=== PATIENT | female | born 1940 | race Caucasian/White ===

== ENCOUNTER → 2017-08-11 10:25 | Outpatient (CLI) | payer MEDICARE, OTHER, SELFPAY ==
--- NOTE | 2017-08-11 09:00 | PET_ITS ---
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 COMPARISON EXAMINATION: CT of the abdomen and pelvis report dated 07/31/17, CT of the chest report dated 07/30/17. INDEX LESION SIZE SUV INTERPRETATION Right upper abdomen surgical site 14.5 mm x 15.7 mm (frame 162) 7.8 Fulfills quantitative criteria for viable neoplasm Left mid posterolateral hemithorax pulmonary parenchyma, left lower lobe 12.2 mm (frame 220) 1.2 Quantitative criteria for viable neoplasm are not fulfilled, sequential radiologic investigation recommended TECHNIQUE: Following the intravenous administration of 17.3 mCi of F-18 deoxyglucose via the left forearm, multiplanar image acquisitions of the neck, chest, abdomen and pelvis to level of mid thigh, obtained at one hour post radiopharmaceutical administration contemporaneously interpreted with the current CT of the neck, chest, abdomen and pelvis to level of mid thigh, dated 08/11/[address] of the abdomen and pelvis report dated 07/31/17, CT of the chest report dated 07/30/17 reveal: SERUM GLUCOSE LEVEL: 85 mg/dl. HEIGHT: 64 inches. WEIGHT: 122 lbs. FINDINGS: 1. A distinct nodular focus of enhanced glucose metabolism is defined in the right upper abdomen in the region of the surgical bed, operative site. The calculated maximum standard uptake value is 7.8. The maximal axial diameter of the corresponding metabolic, morphologic abnormality on review of CT of the abdomen and pelvis dated 08/11/17 is 14.5 mm (transverse) x 15.7 mm (AP). 2. Subtle increased radiotracer concentration is observed in the left mid posterolateral hemithorax pulmonary parenchyma, left lower lobe generating a calculated maximum standard uptake value of 1.2. The maximal axial diameter of the corresponding density on review of CT of the thorax dated 08/11/17 is 12.2 mm (transverse). 3. Normal physiologic distribution of the radiopharmaceutical is apparent in the hepatic (2.7) and splenic parenchyma, both renal units, bladder and visualized intestinal tract. Decreased glucose metabolism is defined in the bilateral occipital and right temporal cerebral cortex on review of limited reconstructions of the brain. There is otherwise symmetric glucose metabolism noted in the remaining cerebral cortical and subcortical structures. Diffuse intestinal tract activity is noted throughout all four quadrants of the abdominal-pelvic retroperitoneum, mesentery consistent with normal physiologic distribution of the radiopharmaceutical. Prominent glucose concentration is observed in the descending thoracic aorta. Pertinent CT findings are as follows. CHEST: Atherosclerotic calcification is defined in the thoracic aorta without evidence of dilatation, aneurysm formation. Bilateral axillary soft tissue densities with fatty hilus formation are non-glucose avid. There are no parenchymal densities-nodules demonstrated in the right-left hemithorax manifesting quantitatively significant increased glucose metabolism. ABDOMEN AND PELVIS: Postsurgical changes are noted in the right upper abdomen. The gallbladder is surgically absent. Soft tissue mass formation is noted at the operative site as described above demonstrating quantitatively significant increased glucose metabolism. Colonic diverticulosis is defined. Right-left inguinal soft tissue densities are ametabolic. SKELETAL: Degenerative changes defined in the cervical, thoracic and lumbar spine demonstrate no evidence for glucose hypermetabolism. Diffuse demineralization is demonstrated. PET/PET/CT Tumor Base -Thigh Init IMPRESSION: 1. ABNORMAL EXAMINATION INDICATIVE OF MALIGNANT VIABLE NEOPLASM. 2. Increased glucose concentration noted in the right upper abdomen in the region of the surgical site fulfills quantitative criteria for viable neoplasm. 3. Subtle increased labeled glucose metabolism observed in the left hemithorax pulmonary parenchyma, left lower lobe does not fulfill quantitative criteria for viable neoplasm. (Morrison et al, Annals of Internal Medicine, 138:724, 2003). 4. Metabolic and/or anatomic stability may be ensured in the left hemithorax mildly hypermetabolic pulmonary parenchymal hypermetabolic focus with repeat FDG PET study and/or CT of the thorax in three months. (Xiu, Journal of Nuclear Medicine 45:88, P2004. Guille, Seminars in Thoracic and Cardiovascular Surgery 14:292, 2002). 5. Prominent glucose concentration observed in the descending thoracic aorta is commensurate with activated leukocytes associated with atherosclerotic plaque formation. (Poncho et al, Clinical Nuclear Medicine 29:93, 2004). Electronic Signature West Rust D.O. Electronically Signed: West Rust DO at 23:11 EDT Tel , Service support ,
== END ==
PROVIDERS: Family Provider Family Medicine; PCP Family Medicine; Visit Provider Internal Medicine Hematology & Oncology
DX: R91.1 Solitary pulmonary nodule (principal)
CPT/HCPCS: 78815; A9552; A4216

== ENCOUNTER → 2017-09-02 08:29 | Outpatient (CLI) | payer MEDICARE, OTHER, SELFPAY ==
[2017-09-02] VITALS (11 sets, daily range): BP systolic 107–168; BP diastolic 61–95; PULSE 46–63; RESP 13–20; TEMP 37.1; O2SAT 92–100; BMI 21.1
--- NOTE | 2017-09-02 08:34 | CT_ITS ---
PROCEDURE: CT-GUIDED CORE BIOPSY OF A MASS IN THE GALLBLADDER FOSSA Individualized dose optimization techniques were used for this CT. INDICATION: Female, 77 years old. Recurrent mass in the gallbladder fossa CT guidance RADIATION DOSAGE (If Supplied By Facility): CTDIvol = ( ) mGy, DLP = ( ) mGycm CONSENT: The risks, benefits and alternatives to the procedure were explained to the patient, and the patient agreed to the procedure and signed the consent. SEDATION: Intermittent the intravenous and demonstration of Versed and fentanyl by nursing staff under continuous cardiopulmonary monitoring. Sedation less than approximately 30 minutes STERILE BARRIER TECHNIQUE: The following sterile barrier precautions were used during the procedure: hand hygiene; use of 2% chlorhexidine aseptic; use of a cap, mask, sterile gown, sterile gloves, sterile full body drape, and a large sterile sheet. PROCEDURE/TECHNIQUE: The risks, benefits, and alternatives to the procedure were explained to patient, and the patient agreed to the procedure and signed a consent form for the procedure. A timeout was performed to confirm the patient's identity, the type of procedure, to be performed and the site of entry. Patient was positioned supine on the CT scan table. Under CT guidance using sterile technique and after infiltration of the skin and subcutaneous soft tissues with 40 mL of lidocaine 1% an 18-gauge core biopsy was introduced in the lung mass previously described.Multiple core samples were obtained and were placed with in formalin solution and sent to the lab for evaluation. Touch prep slides were examined by the pathologist at the procedure. FINDINGS: Successful CT-guided core biopsy of soft tissue mass in the gallbladder fossa. Localizing 20-gauge needle penetrated the gastric antrum during the study. The post biopsy CT scan demonstrated small hemorrhage in the gallbladder fossa. CT/Biopsy/Inj or Needle Placement IMPRESSION: Successful CT-guided core biopsy of a soft tissue mass in the gallbladder fossa. Accidental penetration of the gastric antrum with 20-gauge needle. Small hematoma in the gallbladder fossa after the biopsy. Electronically Signed: Amy Saleem MD at 16:10 EDT Tel , Service support ,
[2017-09-02 09:28] LABS: Platelet Count 230 K/mm3 (150-450)
[2017-09-02 09:36] LABS: Prothrombin Time (Protime)PT. 13.5 SECONDS (11.7-14.9)
[2017-09-02 09:37] LABS: Partial Thromboplast Time 29.5 Seconds (24.1-36.2)
--- NOTE | 2017-09-02 10:45 | MASS_PTH ---
PATIENT: MARISSA TAVERAS LOC: CT U#:[id number] AGE/SX: 84/F ROOM: RE09/02/[address]: Dr. Rigoberto Mercado DO : 1940 BED: DIS: SPEC #: [id number] RECD: 09/02/17 10:53 STATUS: BILL [place]IO #: [id number] BRANDON: 09/02/17 10:[address]: Rigoberto Mercado DEPT: SURGICAL PATHOLOGY RECD BY: West Freedman ENTERED: 09/02/17 10:59 SP TYPE: Mass OTHR DR: Dr. Jose Juan Story MD Tissues: Soft tissues of abdomen Procedures: Surgery Specimen Level IV HEADER OPERATION: CT-guided RUQ nodule PRE-OP DIAGNOSIS: Cholangiocarcinoma TISSUE SUBMITTED: 18 gauge x6 cores MICROSCOPIC DIAGNOSIS Right upper quadrant nodule, CT-guided core biopsy: Fragments of fibroadipose and fibrovascular tissue with chronic inflammation and reactive changes. Negative for malignancy. SJ:kingsley 09/03/17 COMMENT Please make reference to previous specimen ([id number]) gallbladder, cholecystectomy with diagnosis of invasive adenocarcinoma with focal papillary features. Case has been reviewed in consultation with Dr. Ozuna who concurs with the above diagnosis. IDC:AM MICROSCOPIC DESCRIPTION Slides are reviewed. GROSS DESCRIPTION Received is one container labeled with the patient's name and not further designated. The specimen consists of multiple irregular fragments of light quezada soft tissue that in aggregate measure 1 x 0.3 x 0.1 cm. The specimen is totally submitted in one cassette. / SJ:rg 09/02/17 TC:5 CPT: 42977
--- NOTE | 2017-09-02 11:45 | NURSING ---
PT C/O SEVERE RUQ PAIN AND THEN STS SHE NEEDS TO USE THE BATHROOM. DR CALLE AWARE. PT TO BATHROOM VIA CART AND ASSISTED TO TOILET. PT HAD LARGE BM AND STS PAIN IMPROVED FOLLOWING BM. DR CALLE INFORMED.
== END ==
PROVIDERS: Family Provider Family Medicine; PCP Family Medicine; Visit Provider Internal Medicine Hematology & Oncology
DX: C22.1 Intrahepatic bile duct carcinoma (principal)
CPT/HCPCS: 20206; 77012; 85049; 85610; 85730; 88305; 99156; 99157; J7040; A4216

== ENCOUNTER → 2017-11-06 08:20 | Outpatient (CLI) | payer MEDICARE, OTHER, SELFPAY ==
[2017-11-06] VITALS (9 sets, daily range): BP systolic 100–150; BP diastolic 56–103; PULSE 51–59; RESP 11–26; TEMP 36.3; O2SAT 94–100; BMI 20.7
--- NOTE | 2017-11-06 | ASPIGT_PTH ---
PATIENT: MARISSA TAVERAS LOC: [place] U#:[id number] AGE/SX: 84/F ROOM: RE11/06/[address]: Dr. Rigoberto Mercado DO : 1940 BED: DIS: SPEC #: [id number] RECD: 11/06/17 13:43 STATUS: BILL INDIO #: [id number] BRANDON: 11/06/17 00:[address]: Rigoberto Mercado DEPT: SURGICAL PATHOLOGY RECD BY: West Freedman ENTERED: 11/06/17 13:43 SP TYPE: ASP RAD OTHR DR: Dr. Jose Juan Story MD Tissues: Right upper quadrant of abdomen Procedures: FNA Specimen Adequacy Special Stain Group II Surgery Specimen Level IV Diff Quik Stain (control) Imprint (control) HEADER OPERATION: CT-guided right upper quadrant mass biopsy PRE-OP DIAGNOSIS: Cholangiocarcinoma TISSUE SUBMITTED: Right upper quadrant nodule 18g x3 MICROSCOPIC DIAGNOSIS Right upper outer quadrant mass, CT-guided needle core biopsy: Focal fat necrosis. No evidence of malignancy. AM:kingsley 11/07/17 COMMENT The specimen is evaluated at the time of biopsy by Dr. Vu. Immediate Evaluation = Negative for malignant cells. MICROSCOPIC DESCRIPTION Slides are reviewed. GROSS DESCRIPTION Received in fixative is one container labeled with the patient's name and designated right upper quadrant mass, CT-guided core biopsy. The specimen consists of two irregular fragments of quezada soft tissue that in aggregate measure 0.3 x 0.1 x <0.1 cm. The entire specimen is submitted in one cassette. / SJ:kingsley 11/06/17 TC:5 CPT: 37572, 22757
[2017-11-06 08:57] LABS: International Normalized Ratio 1.1
== END ==
PROVIDERS: Family Provider Family Medicine; PCP Family Medicine; Visit Provider Internal Medicine Hematology & Oncology
DX: R19.01 Right upper quadrant abdominal swelling, mass and lump (principal); K65.4 Sclerosing mesenteritis; Z85.09 Personal history of malignant neoplasm of other digestive organs
CPT/HCPCS: 21920; 36415; 77012; 85610; 88172; 88305; 88313; 99156; 99157; J7040; A4216

== ENCOUNTER 2018-01-04 07:25 | Emergency (ER) | payer MEDICARE, OTHER, SELFPAY ==
[2018-01-04 07:25] VITALS: BP 145/81; PULSE 84; RESP 18; TEMP 36.6; O2SAT 99; BMI 20.7
[2018-01-04 07:39] VITALS: BP 135/70; PULSE 63; RESP 24; O2SAT 100
--- NOTE | 2018-01-04 07:50 | CT_ITS ---
STUDY: CT BRAIN WITHOUT CONTRAST REASON FOR EXAM: Female, 77 years old. Confusion. New medications started RADIATION DOSAGE (If Supplied By Facility): CTDIvol = ( 44.99 ) mGy, DLP = ( 779.24 ) mGycm TECHNIQUE: Transaxial CT imaging of the brain was performed without administration of intravenous contrast material. Individualized dose optimization techniques were used for this CT. COMPARISON: None. FINDINGS: Normal soft tissue structures. Normal calvarium. There is moderate cerebral atrophy with widening of the extra-axial spaces and ventricular dilatation. There are areas of decreased attenuation within the white matter tracts of the supratentorial brain, consistent with microvascular disease changes. Normal basal ganglia and thalami. Normal brainstem. There is mild cerebellar atrophy. There is no intracranial hemorrhage. There are no findings of an acute ischemic infarction. Normal visualized paranasal sinuses. CT/Brain/Head without Contrast IMPRESSION: Chronic involutional changes of the brain. Electronically Signed: Joseph Collier DO at 9:08 EDT Tel , Service support ,
--- NOTE | 2018-01-04 07:50 | EKG12_ITS ---
Test Reason : GEN ILL Blood Pressure : / mmHG Vent. Rate : 059 BPM Atrial Rate : 059 BPM P-R Int : 174 ms QRS Dur : 082 ms QT Int : 408 ms P-R-T Axes : 049 082 082 degrees QTc Int : 403 ms Sinus bradycardia Otherwise normal ECG Confirmed by YANG SANDY, ANAMIKA ([id number]), non linear editor JUN CARDENAS ([id number]) on 01/08/2018 10:13:52 AM Referred By: BRANDY Confirmed By:ANAMIKA SORIA MD
--- NOTE | 2018-01-04 07:50 | RAD_ITS ---
STUDY: X-RAY CHEST REASON FOR EXAM: Female, 77 years old. Confusion TECHNIQUE: Single AP portable view of the chest. COMPARISON: None. FINDINGS: There is hyperinflation of the lungs consistent with chronic obstructive lung disease (COPD). Lungs are clear. There is no demonstrated pleural abnormality. Normal size heart. Normal mediastinum and dom. Normal visualized pulmonary arteries. Normal visualized aortic arch and descending thoracic aorta. Normal visualized thoracic spine. Normal visualized ribs, clavicles, and shoulders. There is no demonstrated abnormality of the visualized soft tissue structures of the upper abdomen. RAD/Chest 1 View IMPRESSION: COPD without acute findings. Electronically Signed: Joseph Collier DO at 9:09 EDT Tel , Service support ,
[2018-01-04 08:23] LABS: Mucous, Urine 0 SEEN /hpf (<or=2+)
[2018-01-04 08:26] LABS: Absolute Lymphocyte Count 1.71 X10^3/ul (0.83-4.51); Absolute Neutrophil Count 2.8 X10^3/uL (2.0-7.7); Basophil# 0.02 X10^3/uL; Basophil% 0.4 % (0-1); Eosinophil# 0.04 X10^3/uL; Eosinophils% 0.8 % (0-5); Hematocrit 37.6 % (37-47); Hemoglobin 12.6 g/dl (12.0-15.0); Lymphocyte # 1.71 X10^3/ul (4.0); Lymphocyte % 35.6 % (19-41); Mean Corp Hgb Conc 33.5 g/gl (32-36); Mean Corpuscular Hgb 30.8 pg (27.0-32.0); Mean Corpuscular Volume 91.9 fL (81-99); Mean Platelet Vol. 9.2 fl (6.2-12.0); Monocyte# 0.29 X10^3/uL; Neutrophil # 2.75 X10^3/uL (2.7-7.7); Neutrophil % 57.2 % (47-70); Platelet Count 205 K/mm3 (150-450); RBC Distribution Width CV 12.2 % (11.6-14.6); RBC Distribution Width SD 41.3 fl (35.1-43.9); Red Blood Count 4.09 M/mm3 (4.2-5.4); White Blood Count 4.8 K/mm3 (4.4-11.0)
[2018-01-04 08:28] LABS: Color, Urine Yellow (Yellow); Glucose, Dipstick Normal (Normal); Ketone-Dipstick Negative (Negative); Leukocyte Esterase-Dipstick 500 /ul (Negative); Nitrite-Dipstick Negative (Negative); Occult Blood-Urine 50 /ul (Negative); POSITIVE COUNT NO; POSITIVE DIFFERENTIAL NO; POSITIVE MORPHOLOGY NO; Protein-Dipstick Negative (Negative); Specific Gravity, Urine 1.015 (1.002-1.030); Urine Bilirubin Dipstick Negative (Negative); Urine Clarity Sl. Cloudy (Clear); Urine Urobilinogen Normal (Normal)
[2018-01-04 08:34] LABS: Amorphous Sediment 1+; Bacteria 3+ /hpf (None Seen); Red Blood Cells-Urine 0-5 SEEN /hpf (0-5); Squamous Epithelial Cells - UA 0-5 SEEN /hpf (5-10); White Blood Cells 5-10 SEEN /hpf (0-5)
[2018-01-04 08:42] LABS: Anion Gap 8 (5-15); BUN 14 mg/dL (7-18); BUN/Creat Ratio 17.5 RATIO (10-20); Calcium,Total 9.3 mg/dL (8.5-10.1); Chloride 109 mmol/L (98-107); EST Glomerular Filtration Rate 74 mL/min (>60); Est Glom Filt Rate - Afr Amer 90 mL/min (>60); Estimated Creatinine Clearance 54.39 ml/min; Glucose 94 mg/dL (74-106); Potassium 3.7 mmol/L (3.5-5.1); Sodium Level 144 mmol/L (136-145)
[2018-01-04 09:17] VITALS: O2SAT 100
--- NOTE | 2018-01-04 09:36 | ED.VISSUMM ---
- ER Visit Summary Date of Service: 01/04/18 Chief Complaint: Disoriented History of Present Illness: The patient is a 77 F who woke up around 1:30 AM today and was screaming help me. Patient did not know where she was. Her helps reorient her and calm her down overnight. She was doing well yesterday. The only change in her normal routine was that she started taking Aricept. She had her first dose last night. She has a history of dementia and hypothyroidism. She has no other associated symptoms other than she felt that she had to have a bowel movement at the time. She was not having any other symptoms. No diarrhea or constipation. No bleeding. No nausea or vomiting. No fevers. Physical Examination: Afebrile and vital signs unremarkable. Patient is alert and oriented. No acute distress. Cranial nerves grossly intact. Moves all extremities. No focal or lateralizing neurologic abnormality's grossly. Heart regular rate and rhythm. Lungs clear. Abdomen soft and nontender. Test Results: EKG showed sinus rhythm at a rate of 59. No sign of acute ischemia or infarction pattern. Chest x-ray showed chronic changes. CT brain showed chronic changes. CBC normal. BMP unremarkable. Troponin normal. Urinalysis shows signs of a UTI. Emergency Department Course and Treatment: Patient symptoms may be secondary to starting Aricept. This can cause insomnia, hallucinations, abnormal dreams, confusion, agitation, and aggression. I advised her to discontinue this medication at this point. I considered other causes of her disorientation. I did check a CT as well as labs and a urinalysis. She has signs of a UTI but no signs of sepsis. No other abnormal findings. We will treat with Keflex for UTI. This does not sound like stroke or seizure. I cannot find any other causes for her symptoms. Will treat the UTI. Discontinue Aricept. Follow-up with her doctor later in the week for recheck. Return for any new or worsening issues. At this point, I do not believe admission or further care is indicated emergently. Patient will return for new or worsening issues. Treatment Plan: Discharge Disposition: Discharged Impression: 1. Disorientation 2. UTI This note was generated with [employer] software. It may contain incorrect words, spelling, and punctuation that were not noted in review of the chart prior to signing ED Disposition - Plan for ED Patient: Chief Complaint: General Illness Referrals: Jose Juan Story MD [Primary Care Provider] -
[2018-01-04 09:39] VITALS: BP 147/81; PULSE 58; RESP 18; O2SAT 99
--- NOTE | 2018-01-04 09:39 | ED.DCSUM_ITS ---
- ER Visit Summary Date of Service: 01/04/18 Chief Complaint: Disoriented History of Present Illness: The patient is a 77 F who woke up around 1:30 AM today and was screaming help me. Patient did not know where she was. Her helps reorient her and calm her down overnight. She was doing well yest erday. The only change in her normal routine was that she started taking Aricept. She had her first dose last night. She has a history of dementia and hypothyroidism. She has no other associated symptoms other than she felt that she had to have a bowel movement at the time. She was not having any other symptoms. No diarrhea or constipation. No bleeding. No nausea or vomiting. No fevers. Physical Examination: Afebrile and vital signs unremarkable. Patient is alert and oriented. No acute distress. Cranial nerves grossly intact. Moves all extremities. No focal or lateralizing neurologic abnormality's grossly. Heart regular rate and rhythm. Lungs clear. Abdomen soft and nontender. Test Results: EKG showed sinus rhythm at a rate of 59. No sign of acute ischemia or infarction pattern. Chest x-ray showed chronic changes. CT brain showed chronic changes. CBC normal. BMP unremarkable. Troponin normal. Urinalysis shows signs of a UTI. Emergency Department Course and Treatment: Patient symptoms may be secondary to starting Aricept. This can cause insomnia, hallucinations, abnormal dreams, confusion, agitation, and aggression. I advised her to discontinue this medication at this point. I considered other causes of her disorientation. I did check a CT as well as labs and a urinalysis. She has signs of a UTI but no signs of sepsis. No other abnormal findings. We will treat with Keflex for UTI. This does not sound like stroke or seizure. I cannot find any other causes for her symptoms. Will treat the UTI. Discontinue Aricept. Follow-up with her doctor later in the week for recheck. Return for any new or worsening issues. At this point, I do not believe admission or further care is indicated emergently. Patient will return for new or worsening issues. Treatment Plan: Discharge Disposition: Discharged Impression: 1. Disorientation 2. UTI This note was generated with AnaBiosation software. It may contain incorrect words, spelling, and punctuation that were not noted in review of the chart prior to signing ED Disposition - Plan for ED Patient: Chief Complaint: General Illness Referrals: Jose Juan Story MD [Primary Care Provider] -
--- NOTE | 2018-01-04 09:39 | ED.DEP ---
ED Disposition - Plan for ED Patient: Chief Complaint: General Illness Instructions: Urinary Tract Infections in Women Prescriptions: Cephalexin [Keflex] 500 mg PO Q6 #14 cap Referrals: Jose Juan Story MD [Primary Care Provider] -
[2018-01-04] MEDS: Cephalexin 250 MG Capsule 500 MG PO (09:48)
[2018-01-04 09:50] VITALS: PULSE 66; RESP 18; O2SAT 98
== END 2018-01-04 09:57 | disposition home or self-care (01) ==
LOC: ED 08:41
PROVIDERS: Emergency Provider Emergency Medicine; Family Provider Family Medicine; PCP Family Medicine
DX: R41.0 Disorientation, unspecified (principal); N39.0 Urinary tract infection, site not specified; E03.9 Hypothyroidism, unspecified; K21.9 Gastro-esophageal reflux disease without esophagitis; F03.90 Unspecified dementia, unspecified severity, without behavioral disturbance, psychotic disturbance, mood disturbance, and anxiety
CPT/HCPCS: 70450; 71045; 80048; 81001; 84484; 85025; 93005; 99283; A4216

== ENCOUNTER → 2018-02-09 09:22 | Outpatient (CLI) | payer MEDICARE, OTHER, SELFPAY ==
[2018-02-09 09:30] LABS: Absolute Lymphocyte Count 2.07 X10^3/ul (0.83-4.51); Absolute Neutrophil Count 2.6 X10^3/uL (2.0-7.7); Basophil# 0.04 X10^3/uL; Basophil% 0.8 % (0-1); Eosinophil# 0.06 X10^3/uL; Eosinophils% 1.2 % (0-5); Hematocrit 39.7 % (37-47); Hemoglobin 12.7 g/dl (12.0-15.0); Lymphocyte # 2.07 X10^3/ul (4.0); Lymphocyte % 40.5 % (19-41); Mean Corpuscular Hgb 30.2 pg (27.0-32.0); Mean Corpuscular Volume 94.3 fL (81-99); Mean Platelet Vol. 9.9 fl (6.2-12.0); Monocyte# 0.34 X10^3/uL; Monocyte% 6.7 % (0-10); Neutrophil % 50.8 % (47-70); POSITIVE COUNT NO; POSITIVE DIFFERENTIAL NO; POSITIVE MORPHOLOGY NO; Platelet Count 217 K/mm3 (150-450); RBC Distribution Width CV 12.6 % (11.6-14.6); RBC Distribution Width SD 42.6 fl (35.1-43.9); Red Blood Count 4.21 M/mm3 (4.2-5.4); White Blood Count 5.1 K/mm3 (4.4-11.0)
== END ==
PROVIDERS: Family Provider Family Medicine; PCP Family Medicine; Referring Provider Internal Medicine Hematology & Oncology; Visit Provider Internal Medicine Hematology & Oncology
DX: C23 Malignant neoplasm of gallbladder (principal)
CPT/HCPCS: 85025

== ENCOUNTER → 2018-07-13 09:08 | Outpatient (CLI) | payer MEDICARE, OTHER, SELFPAY ==
--- NOTE | 2018-07-13 10:30 | PET_ITS ---
EXAMINATION: FDG PET CT INDICATIONS: A 78-year-old female with reported history of cholangiocarcinoma presenting for restaging examination. COMPARISON EXAMINATION: Prior FDG PET study dated 08/11/17. INDEX LESION SIZE SUV INTERPRETATION NEW: Spleen (n = 1) 20.8 mm (frame 134) 5.5 > hepatic reference Fulfills quantitative criteria for viable neoplasm NEW: Right mid abdominal mesentery (n = 2) 14.7 mm largest 2.5 (max) Fulfills quantitative criteria for viable neoplasm NEW: Left hemipelvis adjacent to pelvic sidewall 8.4 mm (frame 56) 6.4 Fulfills quantitative criteria for viable neoplasm PERSISTENT: Left mid posterolateral lung field, left lower lobe 15.0 mm (frame 18) compared to 12.2 mm, 08/11/17 1.6 compared to 1.2, 08/11/17 Quantitative criteria for viable neoplasm are not fulfilled, no definitive interim metabolic change, repeat FDG PET CT imaging in 6-9 months recommended PREVIOUS: Right upper abdomen surgical bed Demonstrates metabolic resolution on the current examination TECHNIQUE: Following the intravenous administration of 15.42 mCi of F-18 deoxyglucose via the left wrist, multiplanar image acquisitions of the neck, chest, abdomen and pelvis to level of mid thigh, obtained at one hour post radiopharmaceutical administration contemporaneously interpreted with the current CT of the neck, chest, abdomen and pelvis to level of mid thigh, dated 07/13/18 via coregistration and prior FDG PET study dated 08/11/17 reveal: SERUM GLUCOSE LEVEL: 85 mg/dl. HEIGHT: 66 inches. WEIGHT: 116 lbs. FINDINGS: 1. Newly identified increased glucose metabolism is manifest in the left upper abdomen, which appears contiguous to the splenic parenchyma in a single nodular presentation. The calculated maximum standard uptake value is 5.5 greater than that defined in the hepatic reference. The maximal axial diameter of the metabolic abnormality on review of CT of the abdomen dated 07/13/18 is 20.8 mm (AP). 2. There is increased FDG uptake noted in the mid abdominal mesentery, noncontiguous to intestinal tract generating a calculated maximum standard uptake value of 2.5. The maximal axial diameter of the most conspicuous hypermetabolic soft tissue density on review of CT of the abdomen dated 07/13/18 is 14.7 mm (transverse). 3. A distinct nodular focus of increased tracer distribution is noted in the left mid posterolateral hemithorax pulmonary parenchyma, left lower lobe generating a current calculated maximum standard uptake value of 1.6 compared to 1.2 defined on the FDG PET study dated 08/11/17. The maximal axial diameter of the corresponding parenchymal density on review of CT of the chest dated 07/13/18 is 15.0 mm. 4. There is an asymmetric increase in radiopharmaceutical concentration noted in the left mid lateral hemipelvic mesentery adjacent to the pelvic sidewall generating a calculated maximum standard uptake value of 6.4. The apparent corresponding soft tissue density demonstrates a maximal axial diameter of 8.4 mm (AP). There is a small degree of metabolic, morphologic data set misregistration. 5. Normal physiologic distribution of the radiopharmaceutical is apparent in the hepatic (2.8/2.7) parenchyma, both renal units, bladder and visualized intestinal tract. There is uniform distribution of the radiopharmaceutical concentration defined in the visualized cerebellar hemispheres and cerebral cortical structures.? Diffuse intestinal tract activity is noted throughout all four quadrants of the abdominal-pelvic retroperitoneum, mesentery consistent with normal physiologic distribution of the radiopharmaceutical. The previously defined right upper abdominal hypermetabolic focus in the region of the surgical bed is not apparent on the present examination. The prior defined morphologic-anatomic changes noted on CT of the neck, chest, abdomen and pelvis manifest on the FDG PET CT study dated 08/11/17 are essentially unchanged on the present examination. PET/PET/CT Tumor Base -Thigh Subs IMPRESSION: 1. ABNORMAL EXAMINATION INDICATIVE OF MALIGNANT-VIABLE NEOPLASM. 2. Increased radiopharmaceutical concentration noted in the splenic parenchyma fulfills quantitative criteria for viable neoplasm. (Mallory et al, J Nucl Med 44:1072, 2001). 3. Facilitated FDG uptake noted in the mid abdominal mesentery to the right of the midline, left lower hemipelvis adjacent to the pelvic sidewall fulfills quantitative criteria for viable neoplasm. 4. Persistent increased tracer uptake noted in the left mid posterolateral lung field, left lower lobe does not fulfill quantitative criteria for viable neoplasm. (Tamiko et al, Annals of Internal Medicine, 138:724, 2003). 5. Metabolic and/or anatomic stability may be ensured in the left hemithorax pulmonary parenchymal abnormality with repeat FDG PET study and/or CT of the thorax in 6-9 months. (Xiu, Journal of Nuclear Medicine 45:88, P2004. Guille, Seminars in Thoracic and Cardiovascular Surgery 14:292, 2001). 6. The prior defined right upper abdominal surgical site hypermetabolic abnormality is not apparent on the current examination. 7. Overall, compared to the prior FDG PET study dated 08/11/17, there is apparent interim development of defined viable neoplastic disease within the context of the splenic parenchyma, mid abdominal mesentery, left lower hemipelvis with interval resolution of the previously identified right upper abdominal hypermetabolic abnormality. Electronic Signature West Rust D.O. Electronically Signed: West Rust DO at 22:39 EDT Tel , Service support ,
== END ==
PROVIDERS: Family Provider Physician Assistant; PCP Physician Assistant; Referring Provider Internal Medicine Hematology & Oncology; Visit Provider Internal Medicine Hematology & Oncology
DX: C22.1 Intrahepatic bile duct carcinoma (principal)
CPT/HCPCS: 78815; A9552